=== PATIENT | male | born 1950 | race Caucasian/White ===

== ENCOUNTER → 2020-06-21 | Outpatient (CLI) | payer OTHER ==
[~2020-06-21] MED LIST: LEVO-T100 MCG PO
== END ==
LOC: LAB 10:45
PROVIDERS: ATTEND Student in an Organized Health Care Education/Training Program
DX: Z01.812 Encounter for preprocedural laboratory examination (principal); Z11.59 Encounter for screening for other viral diseases

== ENCOUNTER → 2020-06-24 | Outpatient (CLI) | payer OTHER ==
[~2020-06-24] VITALS: Ht 175.3 cm; Wt 70.3 kg
--- NOTE | 2020-06-28 17:07 | PATH ---
[facility] [address] [address] PATHOLOGY RPT PROCEDURE Name: ROLANDO BRITO Room #: REG [facility]#: [id number] Admission: 06/24/20 Date of : 54 Discharge: Report #: [id number] Path Case #: [id number] [facility] Accession Number: [id number] . 01 Material submitted: . PART A: colon - POLYP AT PROXIMAL ASCENDING COLON. Modifiers: proximal, ascending PART B: hepatic flexure - POLYP AT HEPATIC FLEXURE PART C: colon - POLYP AT 60CM PART D: anus - ABNORMAL FOLD AT ANAL VERGE . 01 Clinical history: . Hx polyps . 02 Diagnosis: A. Polyp, at proximal ascending colon, endoscopic biopsy: - Tubular adenoma. - Negative for high-grade dysplasia. . B. Polyp, at hepatic flexure, endoscopic biopsy: - Hyperplastic polyp. - Negative for dysplasia. . C. Polyp, at 60 cm, endoscopic biopsy: - Tubular adenoma. - Negative for high-grade dysplasia. . D. Large intestine mucosa, abnormal fold at anal verge, endoscopic biopsy: - Surface ulceration. - Regenerative atypia along with fibrotic lamina propria, see comment. - Negative for dysplasia or malignancy. (IUV:aimee; 06/28/2020) S 06/28/2020 1518 Local . 02 Comment: D. Examination shows fragments of an ulcer, regenerative surface epithelium, lamina propria fibrosis as well as subtle architecturally abnormal crypts. Findings may be suggestive of either ischemic changes involving the anal verge, a solitary rectal ulcer, mucosal prolapse, or changes secondary to medication/drug related injury. There is no dysplasia or malignancy present. Please correlate clinically. (IUV:aimee; 06/28/2020) . 02 Electronically signed: . Roseanne Gregorio MD, Pathologist NPI- [id number] [place] [address] PATHOLOGY RPT PROCEDURE Name: ALISHAPARVEENROLANDO Charity Room #: REG [facility]#: [id number] Admission: 06/24/20 Date of : 54 Discharge: Report #: [id number] Path Case #: [id number] . 01 Gross description: . A. The specimen is received in formalin, labeled "Rolando Brito, polyp at ascending proximal colon" and consists of 2 fragments of pink-quintana tissue measuring 0.3 x 0.2 cm and 0.4 x 0.3 cm which are entirely submitted in A1. . B. The specimen is received in formalin, labeled "Rolando Brito, polyp at hepatic flexure" and consists of multiple fragments of quintana tissue measuring 1.0 x 0.4 x 0.2 cm in aggregate which are entirely submitted in B1. . C. The specimen is received in formalin, labeled "Alisha, Rolando, polyp at 60 cm" and consists of 3 fragments of quintana tissue measuring between 0.2 x 0.2 cm and 0.3 x 0.2 cm which are entirely submitted in C1. . D. The specimen is received in formalin, labeled "Rolando Brito, abnormal fold at anal verge" and consists of multiple fragments of quintana tissue measuring 0.7 x 0.7 x 0.2 cm in aggregate which are entirely submitted in D1. (SDY; 06/27/2020) SYU/SYU 06/27/2020 1243 Local . 02 Pathologist provided ICD-10: D12.2, K63.5, D12.6, K63.3 . 02 CPT . 712507, 352059, 948360, 318991 Specimen Comment: A courtesy copy of this report has been sent to [phone], [phone] Specimen Comment: [id number] Specimen Comment: Report sent to / [facility] Performed at: [address], [place] [id number] MD Natan Robles MD Phone: [phone] Performed at: [address] [id number] MD Roseanne Gregorio MD Phone: [phone]
--- NOTE | 2020-06-30 09:01 | P ---
[facility] [place] [address] [place] [address] PROCEDURE REPORT Name: MELVA MCNAMARA Room #: REG [facility]#: [id number] Admission: 06/24/20 Attend Phys: Thai Oglesby MD Discharge: Date of : 54 Report #: [id number] THIS REPORT FOR: cc: Roddy Abad MD, Brian G. MD Thesing,Thai Ramirez MD ~ CC: Roddy Oglesby DATE OF SERVICE: 06/24/2020 OUTPATIENT COLONOSCOPY REPORT BRIEF HISTORY: The patient is a 69-year-old male with history of colon polyps. He reports to me that his last colonoscopy was done 3 years ago by another provider and polyps were identified and he was advised to return in 3 years for followup colonoscopy. PREOPERATIVE DIAGNOSIS: High risk screening colonoscopy due to history of colon polyps. POSTOPERATIVE DIAGNOSES: 1. Multiple colon polyps. 2. Moderate diverticulosis coli. 3. Internal hemorrhoids. 4. Thickened fold anal verge, likely rectal mucosal prolapse. MEDICATIONS: Deep sedation with propofol per anesthesia. SPECIMENS: 1. Polyp from ascending colon. 2. Polyp, hepatic flexure. 3. Polyp at 60 cm. 4. Biopsies of abnormal fold anal verge. ESTIMATED BLOOD LOSS: 3 mL. PROCEDURE: Colonoscopy to cecum and terminal ileum with biopsy. FINDINGS: Prior to propofol sedation, procedure of colonoscopy was discussed with the patient as well as potential risks and its complications. He indicates he understands and desires to proceed. DESCRIPTION OF PROCEDURE: With the patient in left lateral decubitus position, digital examination was completed, which revealed no abnormalities. [facility] [address] [place] [address] PROCEDURE REPORT Name: MELVA MCNAMARA Room #: REG [facility]#: [id number] Admission: 06/24/20 Attend Phys: Thai Oglesby MD Discharge: Date of : 54 Report #: [id number] Subsequently, the Olympus video colonoscope was introduced into the rectum, advanced under direct vision to the cecum. This was done with minimal difficulty. Cecum was identified by the ileocecal valve and the appendiceal orifice. I was able to visualize the distal segment of terminal ileum, which was inspected and noted to be unremarkable. At that point, the scope was slowly withdrawn and careful circumferential views obtained including retroflexion of the scope in the ascending colon. Unfortunately, there were some limitations of the prep. There were scattered pools of brown liquidy material. We spent a good deal of time irrigating and suctioning and removed much of this liquidy stool. However some of it, because of particulate material, could not be removed. There were a couple pools scattered throughout the colon. Much of the mucosa was well visualized, but in some areas because of the retained material, all the mucosa could not be seen. As we withdrew the scope, a diminutive polyp was seen in the proximal ascending colon, removed with biopsy forceps. A flat 4-mm polyp on the edge of fold was seen and removed with biopsy forceps in the hepatic flexure. There were a few scattered diverticula in proximal colon without endoscopic evidence of diverticulitis. As we withdrew the scope, another diminutive polyp was seen and removed with biopsy forceps at 60 cm. In the sigmoid colon, there was moderately severe diverticular disease without endoscopic evidence of diverticulitis. Scope was withdrawn in the rectum and no abnormalities were noted. However, upon retroflexion, there were noted to be internal hemorrhoids and there was also a thickened fold, which was superficial ulcerated. This likely represents rectal mucosal prolapse, but since it was ulcerated, multiple biopsies were obtained. It does have a benign appearance. Scope was withdrawn. The patient tolerated the procedure well. In addition, the patient has a diffusely dilated colon and due to prep limitations as well as dilated colon, I suspect he is chronically constipated. In addition, the patient did report he did not complete the entire prep. CONDITION OF THE PATIENT UPON DISCHARGE: Following procedure, the patient drowsy and he will be discharged home when fully ambulatory. INSTRUCTIONS TO THE PATIENT AND FAMILY AT THE TIME OF DISCHARGE: We will follow up on the pathology and make further recommendations as needed. Much of the colon was seen well, but some areas because of liquidy material could not be completely seen. Therefore, I have the patient return in 2 years for high risk screening colonoscopy. Also, suggest he use MiraLax on a daily basis for his chronic constipation. In addition, we will have him use Anusol-HC suppositories due to the ulcerated fold at the anal verge, which is likely rectal mucosal prolapse. <ELECTRONICALLY SIGNED> By: Thai Oglesby MD 06/30/20900 0841 2 Thai Oglebsy MD /nt
== END | disposition home or self-care (01) ==
LOC: GI 06:41
PROVIDERS: ATTEND Specialist
DX: Z12.11 Encounter for screening for malignant neoplasm of colon (principal); Z86.010 Personal history of colon polyps; D12.2 Benign neoplasm of ascending colon; D12.4 Benign neoplasm of descending colon; K63.3 Ulcer of intestine; K57.30 Diverticulosis of large intestine without perforation or abscess without bleeding; K64.8 Other hemorrhoids; Z91.041 Radiographic dye allergy status; Z98.890 Other specified postprocedural states; Z79.899 Other long term (current) drug therapy
CPT/HCPCS: 62110; 62900